=== PATIENT | male | born 1980 | race Caucasian/White ===

== ENCOUNTER 2024-07-27 14:59 | Emergency (ER) | payer SELFPAY ==
[2024-07-27 15:00] VITALS: BMI 20.8
--- NOTE | 2024-07-27 15:00 | ED.GENMED ---
History of Present Illness
General
Chief Complaint: Wound Check/Suture Removal
Time Seen by Provider: 07/27/24 15:00
History of Present Illness
History of Present Illness:
HPI: The patient was sent from court to [facility] however constables would not take him there based on the appearance of his lower extremity wounds. He tells me that the wounds have been present for about a few months. The
patient tells me that he was at [facility] about a month ago treated with IV antibiotics which made 'the smell go away'. He was also started on Eliquis because of 'blood clots' in his legs but is noncompliant. He states he when he was at
[facility] he had a temperature of 104 �F. He no longer uses IV drugs but continues to 'snort them'.
EXAM:
GENERAL: The patient appears chronically ill and unkempt
HEENT: Moist oral mucosa
CARDIOVASCULAR: No murmurs, normal heart rate, regular rhythm, No chest wall tenderness
PULMONARY: No respiratory distress, breath sounds are clear and equal
ABDOMEN: Soft with no peritoneal signs, no tenderness
NEUROLOGIC: Excellent strength all extremities, no coordination deficits
PSYCHIATRIC: Appropriate mental status, normal insight and judgement
EXTREMITIES: Nontender, 1+ lower extremity edema, moves all extremities equally
SKIN: Large distal left lower extremity wound laterally and moderate-sized medial right lower extremity wound�both of which are markedly foul-smelling, however there is no surrounding cellulitic changes. The wounds have more of a chronic appearance.
TIME OF INITIAL ENCOUNTER: 3:15 PM
NUMBER AND COMPLEXITY OF PROBLEMS ADDRESSED AT THE ENCOUNTER
� Chronic conditions affecting care: HIV positive, is not a diabetic
� Acute Exacerbation and/or Progression of Chronic Illness: This is a subacute/worsening problem
� Differential Diagnosis includes: Wound infection, substance abuse, bacteremia
AMOUNT AND/OR COMPLEXITY OF DATA TO BE REVIEWED AND ANALYZED
� I performed an independent evaluation of and my interpretation is:
EKG:
CT:
X-rays:
Laboratory Studies: White count is normal at 8.6, lactic acid is 0.7
Other:
� Review of other/old records: No old records available for review
� Clinical information was obtained by an independent historian: [facility]
� Prescriptions/Medications Considered but not given: Considered IV antibiotics however the patient is not febrile, has normal white count normal lactic
� Further testing considered but not performed: Considered speaking to Dr. Hinson, wound care however he is on DND on [place] text
RISK OF COMPLICATIONS AND/OR MORBIDITY OR MORTALITY OF PATIENT MANAGEMENT
� Social determinants of health affecting care: He is homeless and continues to use drugs, he is currently under arrest and awaiting medical clearance for transfer to snf
� Discussion with other providers:
� Escalation of care including admission/observation vs risk of discharge considered: Given the patient's comorbidities of HIV positive and foul-smelling wounds, blood work was obtained as summarized above. No clear indication
for admission to the hospital at this time. I feel the patient is medically cleared for incarceration however I do recommend the patient started on antibiotics in case there is a component of infection.
Phy Exam
Physical Exam
Physical Exam:
See HPI
Sepsis
Sepsis Screening
Sepsis Assessment: Sepsis Ruled Out
Sepsis Screen
Sepsis Screen: Sepsis Ruled Out
Date: 07/27/24
Time: 18:38
Course
Orders/Labs/Results
Orders:
Orders
07/27/24 15:16
US Legs, Bilateral [US Periph Venous LOWER Ext Abraham] Urgent
Comment:
Reason For Exam: swelling; wounds; noncompliant w/ eliquis, 'clots'
07/27/24 15:34
Complete Blood Count/With Diff Urgent
Comprehensive Metabolic Panel Urgent
Lactic Acid Q4H
Comment: CANCEL 2nd LACTIC ACID IF 1st LACTIC ACID IS LESS THAN 2
Blood Culture Routine
LESLIE Source: Blood/Venous
Specimen Description:
Blood Culture Urgent
LESLIE Source: Blood/Venous
Specimen Description:
Wound Culture [Wound/Abscess/Other Culture] Urgent
LESLIE Source: Skin Surface
Specimen Description:
Date Specimen was Collected: 07/27/24
Time Specimen was Collected: 15:22
07/27/24 16:56
Sulfamethox./Trimethoprim Ds [Bactrim Ds 800 mg/160 mg] 1 tablet PO NOW STA
Abnormal Lab Results
07/27/24
15:34
RBC 4.41 L 10^6/uL
(4.70-6.10)
Hgb 12.7 L g/dL
(13.0-18.0)
Hct 36.2 L %
(39.0-52.0)
MPV 13.4 H fL
(7.4-10.4)
Carbon Dioxide 17 L mmol/L
(22-30)
BUN 6 L mg/dl
(9-20)
Creatinine 0.4 L mg/dL
(0.7-1.3)
Glucose 191 H mg/dl
(70-99)
AST 78 H U/L
(17-59)
ALT 69 H U/L
(0-50)
07/27/24 15:34
07/27/24 15:34
Vital Signs
Initial and Last Documented VS:
Initial Vital Signs
Temp Pulse Resp BP Pulse Ox
97.9 F 74 18 135/84 99
07/27/24 15:03 07/27/24 15:03 07/27/24 15:03 07/27/24 15:03 07/27/24 15:03
Last Documented Vital Signs
Temp Pulse Resp BP Pulse Ox
98 F 69 16 118/67 99
07/27/24 17:05 07/27/24 17:05 07/27/24 17:05 07/27/24 17:05 07/27/24 17:05
*Critical Care Note
Total Time (30-74mins, 75-104mins- exclusive of procedures): Not Applicable
ED Attending Note
-
Portions of this chart may have been created with voice recognition software.� Occasional wrong word or��sound alike� substitutions may have occurred due to the inherent limitations of voice recognition software.
Discharge Plan
Departure
Patient Disposition: Home (Routine Discharge)
Date of Disposition: 07/27/24
Time of Disposition: 16:53
Patient with high blood pressure during this ER visit?: Yes
Discharge Problem:
Chronic wound
Instructions: Wound Care (DC)
Prescriptions:
New
sulfamethoxazole-trimethoprim [Bactrim DS] 800-160 mg tablet
1 tab PO BID Qty: 14 0RF
Referrals:
NONE,* [Family Provider] -
Activity Restrictions/Additional Instructions:
Patient is MEDICALLY CLEARED FOR POLICE CUSTODY. White blood cell count is normal. There is no fever. Lactic acid level is normal. Glucose level is somewhat high at 191. Although there is not clear evidence for acute infection, I am prescribing
antibiotics. Ultrasound imaging was negative for blood clots.
Interventions
Interventions:
*Risk Screen - Suicide Last Done: 07/27/24 15:03
*General Assessment Last Done: 07/27/24 15:03
*Neglect/Abuse Screening Last Done: 07/27/24 15:03
ED- Fall Risk Assessment Last Done: 07/27/24 15:03
*Nursing Disposition Last Done: 07/27/24 17:05
ED-Skin Assessment Last Done: 07/27/24 15:03
Discharge Date and Time
Discharge Date/Time: 07/27/24 17:15
Print Language: GEORGIAN
[2024-07-27 15:03] VITALS: BP 135/84
[2024-07-27 16:16] LABS: Lactic Acid 0.7 mmol/L (0.7-2.0)
[2024-07-27 16:21] LABS: % Basophils 0.6 % (0-2); % Immature Granulocytes 0.3 % (0-0.5); % Lymphocytes 34.8 % (20.5-51.1); % Monocytes 3.7 % (1.7-9.3); % Neutrophils 59.6 % (42.2-75.2); Absolute Basophils 0.1 10^3/uL (0-0.2); Absolute Eosinophils 0.1 10^3/uL (0-0.7); Absolute Monocytes 0.3 10^3/uL (0.1-0.6); Absolute Neutrophils 5.1 10^3/uL (1.4-6.5); Hematocrit 36.2 % (39.0-52.0); Hemoglobin 12.7 g/dL (13.0-18.0); Mean Corp Hgb Conc. 35.1 g/dL (33.0-37.0); Mean Corpuscular Hgb 28.8 pg (27.0-31.0); Mean Corpuscular Volume 82.1 fL (80.0-94.0); Mean Platelet Volume 13.4 fL (7.4-10.4); Nucleated Red Blood Cells % 0 % (-); Platelet Count 173 10^3/uL (130-400); Red Blood Cell Count 4.41 10^6/uL (4.70-6.10); Red Cell Dist. Width 12.9 % (11.5-14.5); White Blood Cell Count 8.6 10^3/uL (4.8-10.8)
[2024-07-27 16:27] LABS: ALT (SGPT) 69 U/L (0-50); AST (SGOT) 78 U/L (17-59); Albumin 4.2 g/dl (3.5-5.0); Alkaline Phosphatase 119 U/L (38-126); Blood Urea Nitrogen 6 mg/dl (9-20); Calcium 8.8 mg/dl (8.4-10.2); Carbon Dioxide 17 mmol/L (22-30); Chloride 107 mmol/L (98-107); Estimated Creatinine Clearance > 125 ml/min; Glucose 191 mg/dl (70-99); Potassium 3.7 mmol/L (3.5-5.1); Sodium 137 mmol/L (135-145); Total Bilirubin 0.6 mg/dl (0.2-1.3); Total Protein 6.8 g/dl (6.3-8.2); eGFR > 60.00
[2024-07-27] MEDS: BACTRIM DS 800 MG/160 MG 1 TABLET PO (17:04)
[2024-07-27 17:05] VITALS: BP 118/67
== END 2024-07-27 17:15 | disposition home or self-care (01) ==
LOC: EMR 14:59
PROVIDERS: EMERGENCY PHYSICIAN Emergency Medicine
DX: S81.802A Unspecified open wound, left lower leg, initial encounter (principal); S81.801A Unspecified open wound, right lower leg, initial encounter; Z59.00 Homelessness unspecified; Z21 Asymptomatic human immunodeficiency virus [HIV] infection status; Z79.01 Long term (current) use of anticoagulants; Z91.148 Patient's other noncompliance with medication regimen for other reason
CPT/HCPCS: 99284; 80053; 83605; 85025; 87040; 87070; 87205; 93970